=== PATIENT | female | born 1945 | race Caucasian/White ===

== ENCOUNTER 2023-12-01 13:54 | Emergency (ER) | payer MEDICARE, SELFPAY ==
[2023-12-01 14:04] VITALS: BP 121/70
--- NOTE | 2023-12-01 14:47 | ED.GENMED ---
History of Present Illness
General
Chief Complaint: Urinary Symptoms
Source: patient and spouse
Exam Limitations: none
Time Seen by Provider: 12/01/23 14:31
Nursing documentation reviewed up to this point in time: agreed with
Travel History
Have you had any contact with someone who has COVID-19?: No
Do you have any symptoms of coronavirus? Fever > 100 degrees, chills, cough, shortness of breath, sore throat, loss of taste or smell, muscle aches, or headache?: No
History of Present Illness
History of Present Illness:
Patient is a 78-year-old with a past with a history of chronic pain on chronic opiates fibromyalgia stage III kidney disease anxiety depression overactive bladder, cystitis anemia who presents to the ER complaining of dysuria. She is using
nahs-gvj-bhzsorl AZO and URo-mp . She has a history of frequent UTIs. She denies any fever chills nausea vomiting back pain.
Past History
Past History
ED Past Medical History: Fibromyalgia, HTN, NIDDM, Other (chronic pain, espec lower back) and Other ( headaches, irritable bowel syndrome, diverticulosis, colon polyps, arthritis, history of kidney stones, UTI, )
ED Past Surgical History: Gynecological (Total hysterectomy) and Urological (Bladder surgery X 2)
Social History
Tobacco: Non-smoker
Alcohol: Occasional
Drug: None
Personal:
Living: with family
Employment: Employed
Family History
Family History: Hypertension
Review of Systems
Review of Systems
Allergies reviewed?: Yes
Other source history: family
All Other Systems: ROS reviewed and negative except as documented in HPI and ROS
Constitutional: Reports no symptoms; Denies fever, fatigue or chills
Respiratory: Reports no symptoms
Cardiac: Reports no symptoms
ABD/GI: Denies abdominal pain, nausea, vomiting or diarrhea
: Reports dysuria; Denies frequency, flank pain, difficulty voiding or urgency
Musculoskeletal: Reports no symptoms
Skin: Reports no symptoms
Neurological: Reports no symptoms
Psychiatric: Reports no symptoms
Phy Exam
General Physical Exam
General Presentation: no apparent distress
General age: appears stated age
General Skin: warm and dry
General Habitus: normal
General Mental: alert
General Hydration: appears well hydrated
Gastrointestinal Exam
Gastrointestinal Exam: non tender and soft
Neurological Exam
Neurological Exam: alert and oriented x3
Musculoskeletal Exam
Musculoskeletal Exam: full ROM
Skin Exam
Skin Exam: normal color and warm/dry
Psychiatric Exam
Psychiatric Exam: normal mood/affect
Course
Orders/Labs/Results
Orders:
Orders
12/01/23 15:25
UA Reflex to Culture [Urinalysis Reflex To Culture] Urgent
Date Specimen was Collected: 12/01/23
Time Specimen was Collected: 14:38
Urine Microscopic Reflex Cult Urgent
Urine Culture Urgent
LO Source: U
Specimen Description:
Date Specimen was Collected: 12/01/23
Time Specimen was Collected: 14:38
12/01/23 17:12
Fosfomycin [Monurol] 3 gm PO ONCE ONE
Abnormal Lab Results
12/01/23
15:25
Ur Occult Blood Reflex Trace A
(Negative)
Urine Nitrite (Reflex) Positive A
(Negative)
Urine Bilirubin 1+ A
(Negative)
Leukocyte Esterase Rfl 1+ A
(Negative)
Urine Bacteria (Reflex) Few A
(Negative)
Vital Signs
Initial and Last Documented VS:
Initial Vital Signs
Temp Pulse BP Pulse Ox
98.2 F 74 121/70 91
12/01/23 14:04 12/01/23 14:04 12/01/23 14:04 12/01/23 14:04
Last Documented Vital Signs
Temp Pulse BP Pulse Ox
98.2 F 74 121/70 91
12/01/23 14:04 12/01/23 14:04 12/01/23 14:04 12/01/23 14:04
Binder Operator consulted with Physician
Binder Operator consulted with physician?: Yes
Name of Physician Consulted: [email or web address]
MDM/Problems Addressed
Differential Diagnosis Includes:
Not limited to UTI
MDM/Problems Addressed:
Will treat for UTI. Patient has a history of frequent UTIs. She denies any fever chills nausea vomiting. She denies any back pain. She is nontoxic-appearing she has been taking URO-mp for symptoms [id number]-[id number] which has made patient's urine
blue-green. There are nitrates in urine. With symptoms we will treat. She is nontoxic febrile. Cultures reviewed from prior UTI she is pansensitive however with multiple allergies we will give dose of Monurol here in the ER with close outpatient
follow
Chronic conditions affecting care:
Frequent UTI chronic pain
*Pulse Oximetry
Patient hypoxic: no
*Critical Care Note
Total Time (30-74mins, 75-104mins- exclusive of procedures): Not Applicable
ED Attending Note
-
Portions of this chart may have been created with voice recognition software.� Occasional wrong word or��sound alike� substitutions may have occurred due to the inherent limitations of voice recognition software.
Discharge Plan
Departure
Patient Disposition: Home (Routine Discharge)
Date of Disposition: 12/01/23
Time of Disposition: 17:16
Patient with high blood pressure during this ER visit?: No
Covid-19: Not Applicable
Discharge Problem:
Acute UTI
Instructions: Urinary Tract Infection, Adult (DC)
Prescriptions:
No Action
famotidine 40 MG tablet
80 mg PO BID
estradiol 1 MG tablet
1 mg PO DAILY
ondansetron 4 MG tablet,disintegrating
4 mg PO Q8HPRN PRN (Reason: nausea/vomiting)
topiramate 25 MG tablet
50 mg PO DAILY
sertraline [Zoloft] 100 mg Tablet
100 mg PO BID
metformin 500 mg Tablet
500 mg PO DAILY@1700
cetirizine [Zyrtec] 10 mg Tablet
10 mg PO DAILY
Uribel 118-10-40.8-36 mg Capsule
1 tab PO BID
Gemtesa 75 mg Tablet
75 mg PO QPM
lisinopril 5 MG tablet
5 mg PO QPM
polyethylene glycol 3350 [HealthyLax] 17 gram Powder In Packet
17 g PO TID Qty: 0 0RF
hydromorphone [Dilaudid] 4 mg Tablet
4 mg PO Q6H Qty: 4 0RF
senna 8.6 mg capsule
25.8 mg PO BID Qty: 180 0RF
Referrals:
Homero Fernandes DO [Family Provider] -
Activity Restrictions/Additional Instructions:
You were given 1 dose of Monurol here in the ER. Follow-up with family doctorin next several days .return if any worsening of symptoms if worsening symptoms fever chills nausea vomiting back pain.
Interventions
Interventions:
*ED COVID-19 Vaccine History Last Done: 12/01/23 14:08
[2023-12-01 15:32] LABS: Urine Albumin Trace (Neg - Trace); Urine Bilirubin 1+ (Negative); Urine Character Clear (Clear); Urine Glucose Negative (Negative); Urine Ketone Negative (Negative); Urine Leukocyte 1+ (Negative); Urine Nitrite Positive (Negative); Urine Occult Blood Trace (Negative); Urine Specific Gravity 1.015 (<1.030); Urine Urobilinogen 1+ (Neg - 1+)
[2023-12-01 15:38] LABS: Urine Bacteria Few (Negative); Urine Red Blood Cell 0-2 /HPF (0-2)
[2023-12-01] MEDS: MONUROL 3 GM PO (17:32)
[2023-12-01 17:36] VITALS: BP 118/68
== END 2023-12-01 18:02 | disposition home or self-care (01) ==
LOC: EMR 13:54
PROVIDERS: Nurse Practitioner; EMERGENCY PHYSICIAN Student in an Organized Health Care Education/Training Program; FAMILY PHYSICIAN Family Medicine
DX: N39.0 Urinary tract infection, site not specified (principal); M79.7 Fibromyalgia; I12.9 Hypertensive chronic kidney disease with stage 1 through stage 4 chronic kidney disease, or unspecified chronic kidney disease; E11.22 Type 2 diabetes mellitus with diabetic chronic kidney disease; N18.30 Chronic kidney disease, stage 3 unspecified; N32.81 Overactive bladder; M54.50 Low back pain, unspecified; K57.90 Diverticulosis of intestine, part unspecified, without perforation or abscess without bleeding; M19.90 Unspecified osteoarthritis, unspecified site; K58.9 Irritable bowel syndrome, unspecified; D64.9 Anemia, unspecified; F32.A Depression, unspecified; F41.9 Anxiety disorder, unspecified; G89.29 Other chronic pain; Z79.891 Long term (current) use of opiate analgesic; Z87.440 Personal history of urinary (tract) infections; Z87.442 Personal history of urinary calculi; Z88.6 Allergy status to analgesic agent; Z88.1 Allergy status to other antibiotic agents; Z88.5 Allergy status to narcotic agent; Z88.2 Allergy status to sulfonamides; Z88.7 Allergy status to serum and vaccine; Z88.8 Allergy status to other drugs, medicaments and biological substances
CPT/HCPCS: 99283; 81003; 81015; 87086

== ENCOUNTER 2023-12-17 22:37 | Emergency (ER) | payer MEDICARE, SELFPAY ==
[2023-12-17 22:43] VITALS: BP 136/87
--- NOTE | 2023-12-18 00:57 | ED.GENMED ---
History of Present Illness
General
Chief Complaint: Head Injury
Source: patient
Time Seen by Provider: 12/18/23 00:40
Travel History
Have you had any contact with someone who has COVID-19?: No
Do you have any symptoms of coronavirus? Fever > 100 degrees, chills, cough, shortness of breath, sore throat, loss of taste or smell, muscle aches, or headache?: No
History of Present Illness
History of Present Illness:
78-year-old female presents to the emergency room complaining of injuries from a fall. Patient was sitting in a recliner and reached forward to pick something up it dropped on the floor. She lost her balance and fell forward striking her right
pentecostal area on a table. No loss of consciousness that she did suffer a laceration and had some bleeding. No other injuries. Patient [place] any neck pain. She does have significant weakness in deconditioning. She does fall fairly frequently.
Past History
Past History
ED Past Medical History: Fibromyalgia, HTN, NIDDM, Other (chronic pain, espec lower back) and Other ( headaches, irritable bowel syndrome, diverticulosis, colon polyps, arthritis, history of kidney stones, UTI, )
ED Past Surgical History: Gynecological (Total hysterectomy) and Urological (Bladder surgery X 2)
Social History
Tobacco: Non-smoker
Alcohol: Occasional
Drug: None
Personal:
Living: with family
Employment: Employed
Family History
Family History: Hypertension
Phy Exam
Physical Exam
Physical Exam:
General: Awake, Alert, Oriented X3. No acute distress. Patient is chronically ill.
Vitals: unremarkable
Head: 1 cm laceration right parietal region
Eyes: Pupils equal, EOMI
Throat: Airway intact, no exudates
Neck: Trachea midline, no tenderness palpation cervical spine
Lungs: Clear and equal b/l
Heart: Regular rate, no murmurs
Abd: Soft, Nontender, No pulsatile mass
Neuro: Cranial nerves intact, muscle strength equal bilaterally
Skin: Warm, dry, no rash
Extremities: pulses equal b/l, no edema
Course
Orders/Labs/Results
Orders:
Orders
12/17/23 22:48
CT Head W/o Iv Contrast Urgent
Comment:
Reason For Exam: fall from standing. right sided headstrike
12/18/23 00:59
Tetanus/Diphth/Acelpertussis [Adacel] 0.5 ml IM .ONCE ONE
Vital Signs
Initial and Last Documented VS:
Initial Vital Signs
Temp Pulse Resp BP Pulse Ox
98.3 F 75 18 136/87 98
12/17/23 22:43 12/17/23 22:43 12/17/23 22:43 12/17/23 22:43 12/17/23 22:43
Last Documented Vital Signs
Temp Pulse Resp BP Pulse Ox
98.3 F 64 18 132/73 94
12/17/23 22:43 12/18/23 00:58 12/17/23 22:43 12/18/23 00:58 12/18/23 00:58
Procedures
Laceration Closure
Right Scalp:
Status of Wound: clean
Description of Wound Edges: sharp
Preparation: cleaned with saline
Anesthesia: 1% Lidocaine with epi
Revision/Debridement: routine- no revision
Wound exploration: explored to base- no FB
Type of Closure: single layer closure
Skin Closure Material: skin erika
Number of sutures: 3
MDM/Problems Addressed
Differential Diagnosis Includes:
Scalp laceration, subdural, subarachnoid, concussion
MDM/Problems Addressed:
Patient presents with injuries from head injury. She has a CT scan which shows no acute abnormality. She did have a laceration noted which was closed with 3 erika. We will update the patient's tetanus shot. [place] should be removed in
approximately 1 week.
*Radiology
Radiology exam reviewed: other (Vision report reviewed)
*Pulse Oximetry
Patient hypoxic: no
*Critical Care Note
Total Time (30-74mins, 75-104mins- exclusive of procedures): Not Applicable
ED Attending Note
-
Portions of this chart may have been created with voice recognition software.� Occasional wrong word or��sound alike� substitutions may have occurred due to the inherent limitations of voice recognition software.
Discharge Plan
Departure
Patient Disposition: Home (Routine Discharge)
Date of Disposition: 12/18/23
Time of Disposition: 01:01
Patient with high blood pressure during this ER visit?: No
Condition: Good
Discharge Problem:
Head injury, Laceration of scalp
Instructions: Head Injury in Adults (DC), Laceration Repair With [place] (DC)
Prescriptions:
No Action
famotidine 40 MG tablet
40 mg PO BID
estradiol 1 MG tablet
1 mg PO DAILY
topiramate 25 MG tablet
50 mg PO DAILY
sertraline [Zoloft] 100 mg Tablet
100 mg PO BID
cetirizine [Zyrtec] 10 mg Tablet
10 mg PO DAILY
Uribel 118-10-40.8-36 mg Capsule
2 tab PO BID
Gemtesa 75 mg Tablet
75 mg PO QPM
lisinopril 5 MG tablet
5 mg PO QPM
hydromorphone [Dilaudid] 4 mg Tablet
4 mg PO Q6H Qty: 4 0RF
carvedilol [Coreg] 12.5 mg Tablet
12.5 mg PO BID
phenazopyridine 200 mg Tablet
200 mg PO QID
Folbee 2.5-25-1 mg Tablet
1 tab PO DAILY
ferrous sulfate 325 mg (65 mg iron) Tablet
325 mg PO DAILY
cholecalciferol (vitamin D3) [Vitamin D3] 125 mcg (5,000 unit) Tablet
250 mcg PO DAILY
magnesium oxide 400 mg magnesium Tablet
400 mg PO DAILY
ibuprofen-acetaminophen [Advil Dual Action] 125-250 mg Tablet
2 tab PO Q6H
Pregevan
1 cap PO DAILY
Referrals:
Homero Fernandes DO [Family Provider] -
Activity Restrictions/Additional Instructions:
[place] should be removed in 1 week.
Interventions
Interventions:
*Risk Screen - Suicide Last Done: 12/18/23 00:54
*General Assessment Last Done: 12/18/23 00:53
*Neglect/Abuse Screening Last Done: 12/18/23 00:54
ED- Fall Risk Assessment Last Done: 12/18/23 00:54
*ED COVID-19 Vaccine History Last Done: 12/18/23 00:53
*Nursing Disposition Last Done: 12/18/23 01:35
ED- Neurological Assessment Last Done: 12/18/23 00:54
ED-Skin Assessment Last Done: 12/18/23 00:54
Discharge Date and Time
Discharge Date/Time: 12/18/23 01:35
[2023-12-18 00:58] VITALS: BP 132/73
[2023-12-18] MEDS: ADACEL 0.5 ML IM (01:31)
== END 2023-12-18 01:35 | disposition home or self-care (01) ==
LOC: EMR 22:37
PROVIDERS: EMERGENCY PHYSICIAN Emergency Medicine; FAMILY PHYSICIAN Family Medicine
DX: S01.01XA Laceration without foreign body of scalp, initial encounter (principal); W18.30XA Fall on same level, unspecified, initial encounter; Z23 Encounter for immunization
CPT/HCPCS: 99284; 90471; 12001; 70450; 90715

== ENCOUNTER 2024-01-26 20:14 | Emergency (ER) | payer MEDICARE, SELFPAY ==
[2024-01-26 20:19] VITALS: BP 141/89
[2024-01-26 21:25] VITALS: BP 178/64
[2024-01-26 21:35] LABS: % Basophils 0.8 % (0-2); % Eosinophils 1.4 % (0-6); % Immature Granulocytes 0.8 % (0-0.5); % Monocytes 6.3 % (1.7-9.3); % Neutrophils 77.7 % (42.2-75.2); Absolute Basophils 0.1 10^3/uL (0-0.2); Absolute Eosinophils 0.1 10^3/uL (0-0.7); Absolute Immature Granulocytes 0.1 10^3/uL (0-0.05); Absolute Lymphocytes 1.2 10^3/uL (1.2-3.4); Absolute Monocytes 0.6 10^3/uL (0.1-0.6); Absolute Neutrophils 7.1 10^3/uL (1.4-6.5); Hemoglobin 10.4 g/dL (12.0-16.0); Mean Corp Hgb Conc. 32.5 g/dL (33.0-37.0); Mean Corpuscular Hgb 28.2 pg (27.0-31.0); Mean Corpuscular Volume 86.7 fL (81.0-99.0); Nucleated Red Blood Cells % 0 %; Platelet Count 368 10^3/uL (130-400); Red Blood Cell Count 3.69 10^6/uL (4.20-5.40); Red Cell Dist. Width 15.5 % (11.5-14.5); White Blood Cell Count 9.2 10^3/uL (4.8-10.8)
[2024-01-26 21:36] LABS: Urine Albumin Trace (Neg - Trace); Urine Bilirubin Negative (Negative); Urine Character Clear (Clear); Urine Glucose Negative (Negative); Urine Ketone Negative (Negative); Urine Leukocyte Trace (Negative); Urine Nitrite Negative (Negative); Urine Occult Blood Trace (Negative); Urine Urobilinogen Negative (Neg - 1+)
[2024-01-26 21:44] LABS: Urine Squamous Cell 16-20 /LPF (Few)
[2024-01-26 21:45] LABS: Urine Bacteria Few (Negative); Urine Red Blood Cell 0-2 /HPF (0-2)
[2024-01-26 21:51] LABS: Blood Urea Nitrogen 28 mg/dl (7-17); Calcium 9.7 mg/dl (8.4-10.2); Carbon Dioxide 19 mmol/L (22-30); Chloride 111 mmol/L (98-107); Estimated Creatinine Clearance 39 ml/min; Glucose 111 mg/dl (70-99); Sodium 135 mmol/L (135-145); eGFR 57.66
--- NOTE | 2024-01-26 21:51 | ED.GENMED ---
History of Present Illness
General
Chief Complaint: Swelling
Source: patient and spouse
Time Seen by Provider: 01/26/24 21:30
Travel History
Have you had any contact with someone who has COVID-19?: No
Do you have any symptoms of coronavirus? Fever > 100 degrees, chills, cough, shortness of breath, sore throat, loss of taste or smell, muscle aches, or headache?: No
History of Present Illness
History of Present Illness:
78-year-old female brought to the emergency room for evaluation of lower extremity edema and bruising on her left third toe. Patient has had the lower extremity edema for several weeks. She does not have any shortness of breath. She does not
ambulate much on her own. She uses a walker for very short distances and is otherwise in a wheelchair. Her weight has been stable per her .
Past History
Past History
ED Past Medical History: Fibromyalgia, HTN, NIDDM, Other (chronic pain, espec lower back) and Other ( headaches, irritable bowel syndrome, diverticulosis, colon polyps, arthritis, history of kidney stones, UTI, )
ED Past Surgical History: Gynecological (Total hysterectomy) and Urological (Bladder surgery X 2)
Social History
Tobacco: Non-smoker
Alcohol: Occasional
Drug: None
Personal:
Living: with family
Employment: Employed
Family History
Family History: Hypertension
Phy Exam
Physical Exam
Physical Exam:
General: Awake, Alert, Oriented X3. No acute distress.
Vitals: Hypertensive
Head: Atraumatic
Eyes: Pupils equal, EOMI
Throat: Airway intact, no exudates
Neck: Trachea midline
Lungs: Clear and equal b/l
Heart: Regular rate, no murmurs
Abd: Soft, Nontender, No pulsatile mass
Neuro: Nonfocal
Skin: Warm, dry, no rash
Extremities: pulses equal b/l, 2+ edema
Scores
Heart Failure Risk
Heart Failure Risk Score: Not Applicable
Course
Orders/Labs/Results
Orders:
Orders
01/26/24 21:21
Electrocardiogram (*1) Urgent
Reason for Study: Other
Other Reason for Exam: Respiratory Distress
Cardiac Monitoring- Treatment ONCE
EKG- Treatment ONCE
IV Insert/Care/Rem.- Treatment PRN
01/26/24 21:24
Basic Metabolic Panel Urgent
Complete Blood Count/With Diff Urgent
NT-proBNP Urgent
Troponin I Urgent
UA Reflex to Culture [Urinalysis Reflex To Culture] Urgent
Date Specimen was Collected: 01/26/24
Time Specimen was Collected: 21:22
Urine Microscopic Reflex Cult Urgent
01/26/24 21:50
Foot, Left 3 View [CR Foot - Left Min 3 Views] Urgent
Comment:
Reason For Exam: bruising/pain 3rd digit
01/26/24 21:51
CR Chest - 2 Views Urgent
Comment:
Reason For Exam: peripheral edema
Abnormal Lab Results
01/26/24
21:24
RBC 3.69 L 10^6/uL
(4.20-5.40)
Hgb 10.4 L g/dL
(12.0-16.0)
Hct 32.0 L %
(37.0-47.0)
MCHC 32.5 L g/dL
(33.0-37.0)
RDW 15.5 H %
(11.5-14.5)
MPV 11.0 H fL
(7.4-10.4)
Abs Immat Gran (auto) 0.1 H 10^3/uL
(0-0.05)
Absolute Neuts (auto) 7.1 H 10^3/uL
(1.4-6.5)
Immature Gran % 0.8 H %
(0-0.5)
Neutrophils % 77.7 H %
(42.2-75.2)
Lymphocytes % 13.0 L %
(20.5-51.1)
Chloride 111 H mmol/L
(98-107)
Carbon Dioxide 19 L mmol/L
(22-30)
BUN 28 H mg/dl
(7-17)
Glucose 111 H mg/dl
(70-99)
Ur Occult Blood Reflex Trace A
(Negative)
Leukocyte Esterase Rfl Trace A
(Negative)
Urine Bacteria (Reflex) Few A
(Negative)
01/26/24 21:24
01/26/24 21:24
Vital Signs
Initial and Last Documented VS:
Initial Vital Signs
Temp Pulse Resp BP Pulse Ox
98.2 F 71 16 141/89 98
01/26/24 20:19 01/26/24 20:19 01/26/24 20:19 01/26/24 20:19 01/26/24 20:19
Last Documented Vital Signs
Temp Pulse Resp BP Pulse Ox
98.2 F 67 12 180/71 94
01/26/24 20:19 01/26/24 23:15 01/26/24 23:15 01/26/24 22:00 01/26/24 23:15
MDM/Problems Addressed
Differential Diagnosis Includes:
Venous stasis, congestive heart failure, renal insufficiency
MDM/Problems Addressed:
Labs show mild anemia otherwise CBC is markable. Chemistries show very mildly elevated BUN. Otherwise unremarkable. Troponin is normal. BNP is normal for age. No evidence of UTI. Foot x-ray is negative for fracture. Chest x-ray shows no
pulmonary edema. Suspect the patient's symptoms are related to dependent edema and venous congestion. Start a short course of Lasix to see if this helps. Follow-up primary care provider
Chronic conditions affecting care: DM and HTN
*Radiology
Radiology exam reviewed: preliminary read by ED provider (Personally viewed the patient's chest x-ray and foot x-ray and see no acute abnormality) and radiology read reviewed
*Pulse Oximetry
Patient hypoxic: no
*EKG
Interpreted by ED Provider?: Yes
Interpretation: abnormal
Heart Rate: 68
Rate: normal
Rhythm: sinus
Interval: first degree heart block
QRS Pattern: normal QRS
Ischemia: no ischemia
*Stencil Cutter Interpretation
Rate: normal
Rhythm: sinus
*Critical Care Note
Total Time (30-74mins, 75-104mins- exclusive of procedures): Not Applicable
ED Attending Note
-
Portions of this chart may have been created with voice recognition software.� Occasional wrong word or��sound alike� substitutions may have occurred due to the inherent limitations of voice recognition software.
Discharge Plan
Departure
Patient Disposition: Home (Routine Discharge)
Date of Disposition: 01/26/24
Time of Disposition: 23:05
Patient with high blood pressure during this ER visit?: Yes
Condition: Good
Discharge Problem:
Edema of left lower leg
Instructions: Dependent Edema (DC)
Prescriptions:
New
furosemide [Lasix] 20 mg tablet
20 mg PO DAILY Qty: 7 0RF
No Action
famotidine 40 MG tablet
40 mg PO BID
estradiol 1 MG tablet
1 mg PO DAILY
topiramate 25 MG tablet
50 mg PO DAILY
sertraline [Zoloft] 100 mg Tablet
100 mg PO BID
cetirizine [Zyrtec] 10 mg Tablet
10 mg PO DAILY
Uribel 118-10-40.8-36 mg Capsule
2 tab PO BID
Gemtesa 75 mg Tablet
75 mg PO QPM
lisinopril 5 MG tablet
5 mg PO QPM
hydromorphone [Dilaudid] 4 mg Tablet
4 mg PO Q6H Qty: 4 0RF
carvedilol [Coreg] 12.5 mg Tablet
12.5 mg PO BID
phenazopyridine 200 mg Tablet
200 mg PO QID
Folbee 2.5-25-1 mg Tablet
1 tab PO DAILY
ferrous sulfate 325 mg (65 mg iron) Tablet
325 mg PO DAILY
cholecalciferol (vitamin D3) [Vitamin D3] 125 mcg (5,000 unit) Tablet
250 mcg PO DAILY
magnesium oxide 400 mg magnesium Tablet
400 mg PO DAILY
ibuprofen-acetaminophen [Advil Dual Action] 125-250 mg Tablet
2 tab PO Q6H
Pregevan
1 cap PO DAILY
Referrals:
Homero Fernandes DO [Family Provider] -
Interventions
Interventions:
*Risk Screen - Suicide Last Done: 01/26/24 20:19
*General Assessment Last Done: 01/26/24 21:16
*Neglect/Abuse Screening Last Done: 01/26/24 20:19
*Nursing Disposition Last Done: 01/26/24 23:37
ED- Cardiac Assessment Last Done: 01/26/24 21:34
ED- Pulmonary Assessment Last Done: 01/26/24 21:34
ED-Skin Assessment Last Done: 01/26/24 21:34
Discharge Date and Time
Discharge Date/Time: 01/27/24 00:01
Print Language: GREEK
[2024-01-26 22:00] VITALS: BP 180/71
[2024-01-26 22:00] LABS: NT-proBNP 1390 pg/ml; Troponin I 0.014 ng/ml
== END 2024-01-27 00:01 | disposition home or self-care (01) ==
LOC: EMR 20:14
PROVIDERS: Emergency Medicine; EMERGENCY PHYSICIAN Emergency Medicine; FAMILY PHYSICIAN Family Medicine
DX: R22.42 Localized swelling, mass and lump, left lower limb (principal); D64.9 Anemia, unspecified; I11.0 Hypertensive heart disease with heart failure; E11.9 Type 2 diabetes mellitus without complications; I87.8 Other specified disorders of veins
CPT/HCPCS: 99285; 71046; 73630; 80048; 81003; 81015; 83880; 84484; 85025; 93005